=== PATIENT | male | born 1985 | race American Indian/Alaskan Native ===

== ENCOUNTER 2018-01-14 12:51 | Day surgery (SDC) | payer OTHER ==
[~2018-01-14 12:51] MED LIST: LACTATED RINGERS 1,000 ML IV SCH
[2018-01-14 14:10] LABS: Hematocrit 44.8 % (35.5-45.6); Hemoglobin 14.7 gm/dl (11.8-15.2)
[2018-01-14] MEDS ORDERED: VERSED IV NR (15:00)
[2018-01-14] MEDS ORDERED: ANCEF/STERILE WATER 2 GM/20 ML IV NR (16:00)
--- NOTE | 2018-01-14 17:07 | Anesthesia Day of Surgery ---
Anesthesia Day of Surgery - Day of Surgery Patient Examined: Yes Patient H&P Reviewed: Yes Patient is NPO: Yes
--- NOTE | 2018-01-14 17:07 | Anesthesia Consultation ---
Anesthesia Consult and Med Hx Date of service: 01/14/18 - Airway Anesthetic Teeth Evaluation: Good ROM Head & Neck: Adequate Mental/Hyoid Distance: Adequate Mallampati Class: Class I Intubation Access Assessment: Good - Pulmonary Exam CTA: Yes - Cardiac Exam Cardiac Exam: RRR - Pre-Operative Health Status ASA Pre-Surgery Classification: ASA2 Proposed Anesthetic Plan: General - Pulmonary Hx Smoking: No Hx Sleep Apnea: No (KYLE PRE SCREEN LOW RISK) - Cardiovascular System Hx Hypertension: No - Hematic Hx Anemia: Yes - Other Systems Hx Cancer: No
[2018-01-14] MEDS ORDERED: DILAUDID IV PRN (17:08)
[2018-01-14] MEDS ORDERED: ZOFRAN IV PRN (17:08)
[2018-01-14] MEDS ORDERED: MARCAINE 0.25% INFILTRATI ONE ×2 (18:21→18:27)
[2018-01-14] MEDS ORDERED: TRIPLE ANTIBIOTIC TP ONE (18:36)
--- NOTE | 2018-01-14 18:58 | Short Stay Summary ---
Short Stay Documentation Date of service: 01/14/18 - History H&P: obtained from office - Allergies and Medications Current Medications: Allergies No Known Allergies Allergy (Verified 12/11/17 12:36) Home Medications Medication Instructions Recorded Confirmed Last Taken Type No Known Home Medications [No 12/11/17 01/08/18 Unknown History Reported Home Medications] Active Medications Cefazolin Sodium (Ancef/Sterile Water 2 Gm/20 Ml) 2 gm IV PREOP NR Stop: 01/14/18 23:00 Hydromorphone HCl (Dilaudid) 0.5 mg IV Q10MIN PRN PRN Reason: Pain , Severe (7-10) Stop: 01/14/18 23:59 Lactated Ringer's (Lactated Ringers) 1,000 mls @ 100 mls/hr IV DIRECT HERI Last Admin: 01/14/18 14:22 Dose: 100 mls/hr Midazolam HCl (Versed) 2 mg IV PREOP NR Stop: 01/14/18 23:59 Ondansetron HCl (Zofran) 4 mg IV ONCE PRN PRN Reason: Nausea And Vomiting Stop: 01/14/18 23:59 - Brief post op/procedure progress note Date of procedure: 01/14/18 Pre-op diagnosis: Penile adhesiosn Post-op diagnosis: same Procedure: phallopl, excison adhes, revise ciruc Anesthesia: GETA Findings: no dev Surgeon: SAV FUNETES Estimated blood loss: minimal Pathology: list (excised tissue) Specimen disposition: to lab Condition: stable - Hospital course Hospital course: orpac[facility]ome - Disposition Condition at discharge: Good Disposition: DC- TO HOME OR SELFCARE Short Stay Discharge Plan Activity: advance as tolerated Diet: advance as tolerated Follow up with: SAV FUENTES MD [Staff Physician] - 7 Days
[2018-01-14 20:08] VITALS: BP 120/59
[2018-01-14] MEDS ORDERED: NORCO 5/325 PO PRN (20:08)
--- NOTE | 2018-01-29 18:21 | Operative Report ---
PREOPERATIVE DIAGNOSIS: Penile adhesions. POSTOPERATIVE DIAGNOSIS: Penile adhesions. PROCEDURE: Excision of adhesions, revision of circumcision. ANESTHESIA: General. FINDINGS: No deviation. SURGEON: Aidan Gallegos M.D. ESTIMATED BLOOD LOSS: Minimal. SPECIMENS: tissue to lab. CONDITION: Stable. CLINICAL INDICATIONS: Counseled RCBA, antibiotics, SCDs. 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 DESCRIPTION OF PROCEDURE: The patient was transferred to OR suite in supine position, anesthesia, prepped and draped in standard fashion. At this point, our attention was taken to the redundant skin using hemostat, we dissected a bridge underneath. This is on the left between the glans and coronal sulcus. Next, we demarcated, aligned, excised and then tried to make adequate curvature using curved scissors. We excised the tissue from the glans coronal sulcus and sent for path. At this point, there was minimal bleeding, irrigated using a 4-0 chromic sutures. Interrupted sutures were placed across the glans and across the foreskin with good apposition. The patient was cleaned. Dressing was placed with Neosporin, Vaseline gauze, Chente, and Coban. This was done without excessive compression. The patient awakened and transferred to PACU in good stable condition. JOB# [id number] ATS/NTS BRITT
== END 2018-01-14 20:47 | disposition home or self-care (01) ==
LOC: OR 12:51
PROVIDERS: ATTEND Urology
DX: N48.89 Other specified disorders of penis (principal)
CPT/HCPCS: 36415; 54163; 85014; 85018; J0690; J7120; A6250